=== PATIENT | female | born 1965 | race Caucasian/White ===

== ENCOUNTER → 2016-09-28 | Outpatient (CLI) | payer BC | LOC: MAMMO 06:55 | DX: Z12.31 Encounter for screening mammogram for malignant neoplasm of breast (principal); R92.0 Mammographic microcalcification found on diagnostic imaging of breast; R92.1 Mammographic calcification found on diagnostic imaging of breast | CPT/HCPCS: G0202 ==

== ENCOUNTER → 2016-10-06 | Outpatient (CLI) | payer BC | LOC: MAMMO 13:54 | DX: R92.0 Mammographic microcalcification found on diagnostic imaging of breast (principal); R92.1 Mammographic calcification found on diagnostic imaging of breast ==

== ENCOUNTER → 2017-09-04 | Outpatient (CLI) | payer BC ==
[2017-09-04 20:04] LABS: ALBUMIN 4.3 g/dL (3.5-5.0); BUN/CREATININE RATIO 11.4 (6.0-26.0); CALCIUM 10.6 mg/dL (8.4-10.2); POTASSIUM 4.4 mmol/L (3.6-5.0); TOTAL BILIRUBIN 0.5 mg/dL (0.2-1.3)
== END ==
LOC: LAB 18:50
PROVIDERS: Physician Assistant
DX: R10.13 Epigastric pain (principal)

== ENCOUNTER → 2017-11-07 | Outpatient (CLI) | payer BC | LOC: MAMMO 12:58 | DX: Z12.31 Encounter for screening mammogram for malignant neoplasm of breast (principal); Z98.890 Other specified postprocedural states ==

== ENCOUNTER → 2018-01-10 | Outpatient (CLI) | payer BC ==
[2018-01-10 19:51] LABS: EOS # 0.2 (0.04-0.40); EOS % 1.7 % (1.0-5.0); HEMATOCRIT 39.8 % (37.0-47.0); HEMOGLOBIN 13.4 g/dL (12.5-16.0); MEAN CELL VOLUME 88 fl (78-100); MEAN CORPUSCULAR HEMOGLOBIN 30 pg (27-31); MEAN CORPUSCULAR HGB CONC 34 g/dL (33-37); MEAN PLATELET VOLUME 9.7 fl (7.4-10.4); MONO # 0.7 (0.20-0.80); NEU # 6.3 (1.40-6.50); PLATELET COUNT 415 K/mm3 (130-400); RED BLOOD COUNT 4.52 M/mm3 (4.10-5.30); RED CELL DISTRIBUTION WIDTH 13.8 % (11.5-14.5); WHITE BLOOD COUNT 10.2 K/mm3 (4.8-10.8)
[2018-01-10 19:56] LABS: ALBUMIN 4.2 g/dL (3.5-5.0); CALCIUM 9.5 mg/dL (8.4-10.2); POTASSIUM 3.9 mmol/L (3.6-5.0); TOTAL BILIRUBIN 0.6 mg/dL (0.2-1.3); TOTAL PROTEIN 7.5 g/dL (6.3-8.2)
== END ==
LOC: LAB 18:32
PROVIDERS: Nurse Practitioner Family
DX: J02.9 Acute pharyngitis, unspecified (principal); R20.2 Paresthesia of skin

== ENCOUNTER → 2018-03-15 | Outpatient (CLI) | payer BC ==
[2018-03-15 18:55] LABS: EOS # 0.2 (0.04-0.40); EOS % 2.3 % (1.0-5.0); HEMATOCRIT 41.5 % (37.0-47.0); HEMOGLOBIN 13.4 g/dL (12.5-16.0); LYMPH# 3.4 (1.50-4.00); MEAN CELL VOLUME 89 fl (78-100); MEAN CORPUSCULAR HEMOGLOBIN 29 pg (27-31); MEAN CORPUSCULAR HGB CONC 32 g/dL (33-37); MEAN PLATELET VOLUME 9.3 fl (7.4-10.4); MONO # 0.9 (0.20-0.80); NEU # 5.8 (1.40-6.50); PLATELET COUNT 402 K/mm3 (130-400); RED BLOOD COUNT 4.66 M/mm3 (4.10-5.30); RED CELL DISTRIBUTION WIDTH 13.4 % (11.5-14.5); WHITE BLOOD COUNT 10.3 K/mm3 (4.8-10.8)
[2018-03-15 19:12] LABS: ALBUMIN 4.5 g/dL (3.5-5.0); CALCIUM 9.6 mg/dL (8.4-10.2); TOTAL BILIRUBIN 0.4 mg/dL (0.2-1.3); TOTAL PROTEIN 7.8 g/dL (6.3-8.2)
== END ==
LOC: LAB 18:25
PROVIDERS: Nurse Practitioner
DX: J02.9 Acute pharyngitis, unspecified (principal); R20.2 Paresthesia of skin; R10.9 Unspecified abdominal pain

== ENCOUNTER → 2018-03-29 | Outpatient (CLI) | payer BC | LOC: RAD 08:00 | DX: D25.9 Leiomyoma of uterus, unspecified (principal) ==

== ENCOUNTER → 2018-04-03 | Outpatient (CLI) | payer BC | LOC: RAD 04-02 16:25 | DX: R91.8 Other nonspecific abnormal finding of lung field (principal); R07.9 Chest pain, unspecified; R10.2 Pelvic and perineal pain; R10.9 Unspecified abdominal pain; K22.8 Other specified diseases of esophagus | CPT/HCPCS: Q9967 ==

== ENCOUNTER → 2018-07-23 | Outpatient (CLI) | payer BC | LOC: VAS 16:41 → RAD 16:45 | DX: R60.0 Localized edema (principal) ==

== ENCOUNTER → 2018-07-23 | Day surgery (SDC) | payer BC | LOC: MSO 08:21 | DX: K21.9 Gastro-esophageal reflux disease without esophagitis (principal); Z90.49 Acquired absence of other specified parts of digestive tract; Z88.1 Allergy status to other antibiotic agents; Z88.2 Allergy status to sulfonamides; Z88.6 Allergy status to analgesic agent; Z88.8 Allergy status to other drugs, medicaments and biological substances; I10 Essential (primary) hypertension; J45.909 Unspecified asthma, uncomplicated; F41.9 Anxiety disorder, unspecified; E03.9 Hypothyroidism, unspecified | CPT/HCPCS: 00731; J2704; J7120 ==

== ENCOUNTER → 2018-11-19 | Outpatient (CLI) | payer BC, OTHER ==
[2018-11-19 12:45] LABS: BASO # 0.1 (0.02-0.10); EOS # 0.3 (0.04-0.40); EOS % 2.5 % (1.0-5.0); HEMATOCRIT 43.2 % (37.0-47.0); HEMOGLOBIN 13.8 g/dL (12.5-16.0); MEAN CELL VOLUME 91 fl (78-100); MEAN CORPUSCULAR HEMOGLOBIN 29 pg (27-31); MEAN CORPUSCULAR HGB CONC 32 g/dL (33-37); MEAN PLATELET VOLUME 9.7 fl (7.4-10.4); MONO # 0.8 (0.20-0.80); NEU # 6.2 (1.40-6.50); PLATELET COUNT 435 K/mm3 (130-400); RED BLOOD COUNT 4.73 M/mm3 (4.10-5.30); RED CELL DISTRIBUTION WIDTH 13.9 % (11.5-14.5); WHITE BLOOD COUNT 10.3 K/mm3 (4.8-10.8)
[2018-11-19 12:47] LABS: ALBUMIN 3.7 g/dL (3.5-5.0); POTASSIUM 5.1 mmol/L (3.5-5.1)
[2018-11-19 12:48] LABS: CALCIUM 9.6 mg/dL (8.3-10.5)
[2018-11-19 12:49] LABS: TOTAL PROTEIN 7.5 g/dL (6.4-8.3)
[2018-11-19 12:51] LABS: TOTAL BILIRUBIN 0.4 mg/dL (0.2-1.2)
== END ==
LOC: LAB 09:45
PROVIDERS: Family Medicine
DX: Z00.00 Encounter for general adult medical examination without abnormal findings (principal); Z13.220 Encounter for screening for lipoid disorders; E03.9 Hypothyroidism, unspecified

== ENCOUNTER → 2018-11-21 | Outpatient (CLI) | payer BC | LOC: MAMMO 13:41 | DX: Z12.31 Encounter for screening mammogram for malignant neoplasm of breast (principal) ==

== ENCOUNTER → 2019-01-14 | Outpatient (CLI) | payer BC | LOC: LAB 17:21 | DX: E03.9 Hypothyroidism, unspecified (principal) ==

== ENCOUNTER → 2019-02-04 | Outpatient (CLI) | payer BC, OTHER | LOC: LAB 17:20 | DX: K14.6 Glossodynia (principal) ==

== ENCOUNTER → 2019-02-27 | Outpatient (CLI) | payer BC | LOC: RAD 15:00 | DX: M47.892 Other spondylosis, cervical region (principal); J98.4 Other disorders of lung; K11.7 Disturbances of salivary secretion; K11.8 Other diseases of salivary glands | CPT/HCPCS: Q9967 ==

== ENCOUNTER → 2019-06-18 | Outpatient (CLI) | payer BC ==
[2019-06-19 04:52] LABS: PROGESTERONE <0.5 ng/mL (())
[2019-06-19 04:53] LABS: FOLLICLE STIMULATING HORMONE 1.8 mIU/mL (()); LUTENIZING HORMONE 0.5 mIU/mL (())
[2019-06-22 08:30] LABS: ESTRONE (E1) LEVEL 28 pg/mL (())
== END ==
LOC: LAB 10:42
PROVIDERS: Family Medicine
DX: R53.83 Other fatigue (principal)

== ENCOUNTER → 2019-08-28 | Outpatient (CLI) | payer BC | LOC: LAB 17:16 | DX: E03.9 Hypothyroidism, unspecified (principal); K14.6 Glossodynia ==

== ENCOUNTER → 2019-11-18 | Outpatient (CLI) | payer BC ==
[2019-11-18 10:02] LABS: EOS # 0.3 (0.04-0.40); EOS % 3.3 % (1.0-5.0); HEMATOCRIT 43.1 % (37.0-47.0); LYMPH# 3.1 (1.50-4.00); MEAN CELL VOLUME 89 fl (78-100); MEAN CORPUSCULAR HEMOGLOBIN 29 pg (27-31); MEAN CORPUSCULAR HGB CONC 33 g/dL (33-37); MEAN PLATELET VOLUME 9.4 fl (7.4-10.4); MONO # 0.8 (0.20-0.80); NEU # 4.9 (1.40-6.50); PLATELET COUNT 431 K/mm3 (130-400); RED BLOOD COUNT 4.86 M/mm3 (4.10-5.30); RED CELL DISTRIBUTION WIDTH 13.6 % (11.5-14.5); WHITE BLOOD COUNT 9.1 K/mm3 (4.8-10.8)
[2019-11-18 10:07] LABS: ALBUMIN 3.8 g/dL (3.5-5.0); POTASSIUM 4.1 mmol/L (3.5-5.1)
[2019-11-18 10:08] LABS: CALCIUM 9.3 mg/dL (8.3-10.5)
[2019-11-18 10:11] LABS: TOTAL BILIRUBIN 0.3 mg/dL (0.2-1.2)
[2019-11-19 05:28] LABS: FOLLICLE STIMULATING HORMONE 0.5 mIU/mL (()); LUTENIZING HORMONE 0.2 mIU/mL (()); PROGESTERONE <0.5 ng/mL (())
== END ==
LOC: LAB 09:11
PROVIDERS: Family Medicine
DX: Z00.00 Encounter for general adult medical examination without abnormal findings (principal); K14.6 Glossodynia; E03.9 Hypothyroidism, unspecified; E78.5 Hyperlipidemia, unspecified

== ENCOUNTER → 2019-11-19 | Outpatient (CLI) | payer BC | LOC: MAMMO 12:50 | DX: Z12.31 Encounter for screening mammogram for malignant neoplasm of breast (principal) ==

== ENCOUNTER → 2019-12-09 | Outpatient (CLI) | payer BC | LOC: LAB 08:00 | DX: Z12.11 Encounter for screening for malignant neoplasm of colon (principal) ==

== ENCOUNTER → 2020-01-10 | Outpatient (CLI) | payer BC | LOC: LAB 17:42 | DX: L08.9 Local infection of the skin and subcutaneous tissue, unspecified (principal) ==

== ENCOUNTER → 2020-02-06 | Outpatient (CLI) | payer BC ==
[2020-02-06 12:00] LABS: BASO # 0.1 (0.02-0.10); EOS # 0.2 (0.04-0.40); EOS % 2.1 % (1.0-5.0); HEMATOCRIT 45.1 % (37.0-47.0); HEMOGLOBIN 14.3 g/dL (12.5-16.0); LYMPH# 2.5 (1.50-4.00); MEAN CELL VOLUME 88 fl (78-100); MEAN CORPUSCULAR HEMOGLOBIN 28 pg (27-31); MEAN CORPUSCULAR HGB CONC 32 g/dL (33-37); MONO # 0.8 (0.20-0.80); NEU # 4.7 (1.40-6.50); PLATELET COUNT 470 K/mm3 (130-400); RED BLOOD COUNT 5.12 M/mm3 (4.10-5.30); RED CELL DISTRIBUTION WIDTH 14.2 % (11.5-14.5); WHITE BLOOD COUNT 8.3 K/mm3 (4.8-10.8)
[2020-02-06 12:26] LABS: ALBUMIN 4.1 g/dL (3.5-5.0)
[2020-02-06 12:27] LABS: POTASSIUM 4.5 mmol/L (3.5-5.1)
[2020-02-06 12:28] LABS: CALCIUM 9.7 mg/dL (8.3-10.5)
[2020-02-06 12:31] LABS: TOTAL BILIRUBIN 0.4 mg/dL (0.2-1.2)
== END ==
LOC: LAB 11:33
PROVIDERS: Internal Medicine
DX: K14.6 Glossodynia (principal); I10 Essential (primary) hypertension; R73.02 Impaired glucose tolerance (oral)

== ENCOUNTER → 2020-02-07 | Outpatient (CLI) | payer BC | LOC: RAD 08:25 | DX: N85.8 Other specified noninflammatory disorders of uterus (principal) | CPT/HCPCS: Q9967 ==

== ENCOUNTER → 2020-08-03 | Outpatient (CLI) | payer BC ==
[2020-08-04 07:27] LABS: URINE APPEARANCE CLOUDY; URINE BILIRUBIN NEGATIVE (NEGATIVE); URINE BLOOD NEGATIVE (NEGATIVE); URINE COLOR YELLOW; URINE GLUCOSE NEGATIVE (NEGATIVE); URINE KETONE NEGATIVE (NEGATIVE); URINE LEUKOCYTE ESTERASE TRACE (NEGATIVE); URINE NITRATE NEGATIVE (NEGATIVE); URINE PROTEIN(semi-quant) TRACE mg/dL (NEGATIVE); URINE UROBILINOGEN NORMAL (NORMAL)
== END ==
LOC: LAB 17:37
PROVIDERS: Family Medicine
DX: R35.0 Frequency of micturition (principal)

== ENCOUNTER → 2020-11-18 | Outpatient (CLI) | payer OTHER | LOC: MAMMO 08:30 | DX: Z12.31 Encounter for screening mammogram for malignant neoplasm of breast (principal) ==

== ENCOUNTER → 2020-11-18 | Outpatient (CLI) | payer OTHER ==
[2020-11-18 10:52] LABS: BASO # 0.05 (0.02-0.10); EOS % 3.1 % (1.0-5.0); HEMOGLOBIN 14.3 g/dL (12.5-16.0); LYMPH# 3.55 (1.50-4.00); MEAN CELL VOLUME 91 fl (78-100); MEAN CORPUSCULAR HEMOGLOBIN 29 pg (27-31); MEAN CORPUSCULAR HGB CONC 32 g/dL (33-37); MEAN PLATELET VOLUME 8.8 fl (7.4-10.4); MONO # 0.76 (0.20-0.80); NEU # 4.86 (1.40-6.50); PLATELET COUNT 444 K/mm3 (130-400); RED BLOOD COUNT 4.94 M/mm3 (4.10-5.30); RED CELL DISTRIBUTION WIDTH 13.3 % (11.5-14.5); WHITE BLOOD COUNT 9.6 K/mm3 (4.8-10.8)
[2020-11-18 10:53] LABS: ALBUMIN 3.8 g/dL (3.5-5.0); POTASSIUM 4.5 mmol/L (3.5-5.1)
[2020-11-18 10:54] LABS: CALCIUM 9.9 mg/dL (8.3-10.5)
[2020-11-18 10:56] LABS: TOTAL PROTEIN 7.8 g/dL (6.4-8.3)
[2020-11-18 10:58] LABS: TOTAL BILIRUBIN 0.6 mg/dL (0.2-1.2)
== END ==
LOC: LAB 10:04
PROVIDERS: Family Medicine
DX: Z00.00 Encounter for general adult medical examination without abnormal findings (principal); R53.83 Other fatigue; E55.9 Vitamin D deficiency, unspecified; E78.5 Hyperlipidemia, unspecified

== ENCOUNTER → 2020-12-08 | Outpatient (CLI) | payer OTHER | LOC: RAD 15:54 | DX: M17.11 Unilateral primary osteoarthritis, right knee (principal); Z96.89 Presence of other specified functional implants ==

== ENCOUNTER → 2020-12-15 | Outpatient (CLI) | payer OTHER | LOC: RAD 09:50 | DX: M51.26 Other intervertebral disc displacement, lumbar region (principal); M48.061 Spinal stenosis, lumbar region without neurogenic claudication; M47.816 Spondylosis without myelopathy or radiculopathy, lumbar region ==

== ENCOUNTER → 2021-02-11 | Outpatient (CLI) | payer OTHER | LOC: LAB 17:20 | DX: E03.9 Hypothyroidism, unspecified (principal) ==

== ENCOUNTER → 2021-04-26 | Outpatient (CLI) | payer OTHER ==
[2021-04-26 18:04] LABS: BASO # 0.06 K/mm3 (0.02-0.10); EOS # 0.22 K/mm3 (0.04-0.40); EOS % 1.8 % (1.0-5.0); HEMATOCRIT 43.7 % (37.0-47.0); HEMOGLOBIN 14.1 g/dL (12.5-16.0); LYMPH# 3.41 K/mm3 (1.50-4.00); MEAN CELL VOLUME 88 fl (78-100); MEAN CORPUSCULAR HEMOGLOBIN 28 pg (27-31); MEAN CORPUSCULAR HGB CONC 32 g/dL (33-37); MEAN PLATELET VOLUME 8.7 fl (7.4-10.4); MONO # 0.82 K/mm3 (0.20-0.80); NEU # 7.45 K/mm3 (1.40-6.50); PLATELET COUNT 481 K/mm3 (130-400); RED BLOOD COUNT 4.97 M/mm3 (4.10-5.30); RED CELL DISTRIBUTION WIDTH 12.7 % (11.5-14.5)
[2021-04-26 18:11] LABS: ALBUMIN 4.1 g/dL (3.5-5.0)
[2021-04-26 18:13] LABS: CALCIUM 10.4 mg/dL (8.3-10.5)
[2021-04-26 18:14] LABS: TOTAL PROTEIN 7.9 g/dL (6.4-8.3)
[2021-04-26 18:16] LABS: TOTAL BILIRUBIN 0.4 mg/dL (0.2-1.2)
== END ==
LOC: LAB 17:43
PROVIDERS: Family Medicine
DX: I10 Essential (primary) hypertension (principal)

== ENCOUNTER → 2021-06-22 | Outpatient (CLI) | payer OTHER | LOC: LAB 17:49 | DX: I10 Essential (primary) hypertension (principal); E03.9 Hypothyroidism, unspecified; K21.9 Gastro-esophageal reflux disease without esophagitis; J30.9 Allergic rhinitis, unspecified; G47.00 Insomnia, unspecified; M54.16 Radiculopathy, lumbar region; E66.9 Obesity, unspecified; M19.90 Unspecified osteoarthritis, unspecified site; G64 Other disorders of peripheral nervous system; E55.9 Vitamin D deficiency, unspecified ==

== ENCOUNTER → 2021-09-22 | Outpatient (CLI) | payer OTHER | LOC: LAB 17:25 | DX: E03.9 Hypothyroidism, unspecified (principal) ==

== ENCOUNTER → 2021-10-25 | Outpatient (CLI) | payer OTHER ==
[2021-10-25 19:05] LABS: CLUE CELLS NOT OBSERVED (Not Observd)
== END ==
LOC: LAB 18:04
PROVIDERS: Nurse Practitioner Family
DX: N89.9 Noninflammatory disorder of vagina, unspecified (principal)
CPT/HCPCS: Q0111

== ENCOUNTER → 2021-11-15 | Outpatient (CLI) | payer OTHER ==
[2021-11-15 10:25] LABS: BASO # 0.06 K/mm3 (0.02-0.10); EOS # 0.27 K/mm3 (0.04-0.40); EOS % 3.3 % (1.0-5.0); HEMATOCRIT 45.1 % (37.0-47.0); HEMOGLOBIN 14.5 g/dL (12.5-16.0); LYMPH# 2.89 K/mm3 (1.50-4.00); MEAN CELL VOLUME 90 fl (78-100); MEAN CORPUSCULAR HEMOGLOBIN 29 pg (27-31); MEAN CORPUSCULAR HGB CONC 32 g/dL (33-37); MEAN PLATELET VOLUME 8.6 fl (7.4-10.4); MONO # 0.53 K/mm3 (0.20-0.80); NEU # 4.37 K/mm3 (1.40-6.50); PLATELET COUNT 405 K/mm3 (130-400); RED BLOOD COUNT 4.99 M/mm3 (4.10-5.30); RED CELL DISTRIBUTION WIDTH 13.3 % (11.5-14.5); WHITE BLOOD COUNT 8.1 K/mm3 (4.8-10.8)
[2021-11-15 10:33] LABS: ALBUMIN 4.1 g/dL (3.5-5.0)
[2021-11-15 10:35] LABS: CALCIUM 9.9 mg/dL (8.3-10.5)
[2021-11-15 10:36] LABS: TOTAL PROTEIN 7.4 g/dL (6.4-8.3)
[2021-11-15 10:38] LABS: TOTAL BILIRUBIN 0.8 mg/dL (0.2-1.2)
== END ==
LOC: LAB 10:05
PROVIDERS: Family Medicine
DX: Z00.00 Encounter for general adult medical examination without abnormal findings (principal); E78.5 Hyperlipidemia, unspecified; E55.9 Vitamin D deficiency, unspecified; E03.9 Hypothyroidism, unspecified

== ENCOUNTER → 2021-12-20 | Day surgery (SDC) | payer OTHER | LOC: MSO 08:50 | DX: Z12.11 Encounter for screening for malignant neoplasm of colon (principal) | CPT/HCPCS: 00812; J7120 ==

== ENCOUNTER → 2022-05-18 | Outpatient (CLI) | payer OTHER ==
[~2022-05-18] MED LIST: AMBIEN5 M1 PO; DICLOFENAC SOD100 GM TP; FUROSEMIDE20 MG PO; LEVOTHYROXINE125 MCG PO; NEURONTIN300 MG/CAP PO; SINGULAIR 110 MG/TAB PO; ZYRTEC ALLERGY10 MG PO
== END ==
LOC: LAB 17:26
DX: M19.90 Unspecified osteoarthritis, unspecified site (principal); E03.9 Hypothyroidism, unspecified; M25.561 Pain in right knee; M54.16 Radiculopathy, lumbar region

== ENCOUNTER → 2023-02-06 | Day surgery (SDC) | payer OTHER | END | disposition home or self-care (01) | LOC: MSO 10:31 | DX: K21.9 Gastro-esophageal reflux disease without esophagitis (principal) | CPT/HCPCS: 00731; J2704; J7120 ==

== ENCOUNTER → 2023-03-03 | Outpatient (CLI) | payer OTHER ==
[2023-03-03 09:41] LABS: BASO # 0.01 K/mm3 (0.02-0.10); HEMATOCRIT 43.1 % (37.0-47.0); LYMPH# 1.49 K/mm3 (1.50-4.00); MEAN CELL VOLUME 90 fl (78-100); MEAN CORPUSCULAR HEMOGLOBIN 29 pg (27-31); MEAN CORPUSCULAR HGB CONC 33 g/dL (33-37); MEAN PLATELET VOLUME 8.5 fl (7.4-10.4); MONO # 0.83 K/mm3 (0.20-0.80); NEU # 12.59 K/mm3 (1.40-6.50); PLATELET COUNT 494 K/mm3 (130-400); RED BLOOD COUNT 4.77 M/mm3 (4.10-5.30); RED CELL DISTRIBUTION WIDTH 13.4 % (11.5-14.5)
== END ==
LOC: LAB 09:16
PROVIDERS: Nurse Practitioner
DX: J32.9 Chronic sinusitis, unspecified (principal); D72.829 Elevated white blood cell count, unspecified

== ENCOUNTER → 2023-04-11 | Outpatient (CLI) | payer OTHER | LOC: RAD 08:53 | DX: J32.9 Chronic sinusitis, unspecified (principal) ==

== ENCOUNTER → 2023-08-22 | Day surgery (SDC) | payer OTHER ==
[~2023-08-22] MED LIST changes: +Iohexol 300 - 10 ML VIAL IV ONE; +methylPREDNISolone acetate 80 MG/ML VIAL IJ ONE
== END | disposition home or self-care (01) ==
LOC: MSO 12:38
DX: M46.1 Sacroiliitis, not elsewhere classified (principal); M47.896 Other spondylosis, lumbar region; M48.061 Spinal stenosis, lumbar region without neurogenic claudication; E66.9 Obesity, unspecified; Z68.33 Body mass index [BMI] 33.0-33.9, adult
CPT/HCPCS: J0665; J1010; Q9967

== ENCOUNTER → 2023-10-17 | Outpatient (CLI) | payer OTHER ==
[~2023-10-17] MED LIST changes: -Iohexol 300 - 10 ML VIAL IV ONE; -methylPREDNISolone acetate 80 MG/ML VIAL IJ ONE
[2023-10-17 19:36] LABS: ALBUMIN 4.4 g/dL (3.5-5.0)
[2023-10-17 19:37] LABS: BASO # 0.06 K/mm3 (0.02-0.10); CALCIUM 9.7 mg/dL (8.3-10.5); EOS # 0.36 K/mm3 (0.04-0.40); EOS % 3.2 % (1.0-5.0); HEMATOCRIT 41.9 % (37.0-47.0); HEMOGLOBIN 13.4 g/dL (12.5-16.0); LYMPH# 4.15 K/mm3 (1.50-4.00); MEAN CELL VOLUME 90 fl (78-100); MEAN CORPUSCULAR HEMOGLOBIN 29 pg (27-31); MEAN CORPUSCULAR HGB CONC 32 g/dL (33-37); MEAN PLATELET VOLUME 9.1 fl (7.4-10.4); MONO # 0.86 K/mm3 (0.20-0.80); NEU # 5.68 K/mm3 (1.40-6.50); PLATELET COUNT 412 K/mm3 (130-400); RED BLOOD COUNT 4.68 M/mm3 (4.10-5.30); RED CELL DISTRIBUTION WIDTH 13.7 % (11.5-14.5); WHITE BLOOD COUNT 11.1 K/mm3 (4.8-10.8)
[2023-10-17 19:38] LABS: CLUE CELLS PRESENT (Not Observd)
[2023-10-17 19:39] LABS: TOTAL PROTEIN 8.3 g/dL (6.4-8.3)
[2023-10-17 19:40] LABS: TOTAL BILIRUBIN 0.3 mg/dL (0.2-1.2)
== END ==
LOC: LAB 19:00
PROVIDERS: Nurse Practitioner Family
DX: L29.3 Anogenital pruritus, unspecified (principal)
CPT/HCPCS: Q0111

== ENCOUNTER → 2023-11-13 | Outpatient (CLI) | payer OTHER ==
[2023-11-13 10:57] LABS: BASO # 0.07 K/mm3 (0.02-0.10); EOS # 0.44 K/mm3 (0.04-0.40); EOS % 5.2 % (1.0-5.0); HEMATOCRIT 44.1 % (37.0-47.0); HEMOGLOBIN 14.1 g/dL (12.5-16.0); LYMPH# 2.94 K/mm3 (1.50-4.00); MEAN CELL VOLUME 89 fl (78-100); MEAN CORPUSCULAR HEMOGLOBIN 29 pg (27-31); MEAN CORPUSCULAR HGB CONC 32 g/dL (33-37); MEAN PLATELET VOLUME 8.6 fl (7.4-10.4); NEU # 4.25 K/mm3 (1.40-6.50); PLATELET COUNT 453 K/mm3 (130-400); RED BLOOD COUNT 4.94 M/mm3 (4.10-5.30); RED CELL DISTRIBUTION WIDTH 13.7 % (11.5-14.5); WHITE BLOOD COUNT 8.4 K/mm3 (4.8-10.8)
[2023-11-13 11:09] LABS: ALBUMIN 4.4 g/dL (3.5-5.0)
[2023-11-13 11:10] LABS: CALCIUM 10.4 mg/dL (8.3-10.5)
[2023-11-13 11:13] LABS: TOTAL BILIRUBIN 0.6 mg/dL (0.2-1.2)
== END ==
LOC: LAB 10:26
PROVIDERS: Family Medicine
DX: E03.9 Hypothyroidism, unspecified (principal); E55.9 Vitamin D deficiency, unspecified; I10 Essential (primary) hypertension; E66.9 Obesity, unspecified

== ENCOUNTER → 2024-01-09 | Day surgery (SDC) | payer OTHER ==
[~2024-01-09] MED LIST changes: +Iohexol 300 - 10 ML VIAL IV ONE; +Lidocaine PF 2% (20 MG/ML) 2 ML VIAL IJ ONE
== END ==
LOC: MSO 12-19 11:35
DX: M54.16 Radiculopathy, lumbar region (principal)
CPT/HCPCS: J1100; Q9967

== ENCOUNTER → 2024-01-15 | Outpatient (CLI) | payer OTHER ==
[~2024-01-15] MED LIST changes: -Iohexol 300 - 10 ML VIAL IV ONE; -Lidocaine PF 2% (20 MG/ML) 2 ML VIAL IJ ONE
== END ==
LOC: LAB 17:41
DX: E03.9 Hypothyroidism, unspecified (principal)

== ENCOUNTER → 2024-02-20 | Day surgery (SDC) | payer OTHER ==
[~2024-02-20] MED LIST changes: +Iohexol 300 - 10 ML VIAL IV ONE; +methylPREDNISolone acetate 80 MG/ML VIAL IJ ONE
== END | disposition home or self-care (01) ==
LOC: MSO 13:23
DX: M46.1 Sacroiliitis, not elsewhere classified (principal); M54.50 Low back pain, unspecified; M53.3 Sacrococcygeal disorders, not elsewhere classified
CPT/HCPCS: J0665; J1010; Q9967

== ENCOUNTER → 2024-04-09 | Day surgery (SDC) | payer OTHER ==
[~2024-04-09] MED LIST changes: -Iohexol 300 - 10 ML VIAL IV ONE; -methylPREDNISolone acetate 80 MG/ML VIAL IJ ONE
== END ==
LOC: WKSPAIN 03:50
DX: M47.817 Spondylosis without myelopathy or radiculopathy, lumbosacral region (principal); G89.29 Other chronic pain; M51.26 Other intervertebral disc displacement, lumbar region; M48.061 Spinal stenosis, lumbar region without neurogenic claudication; M51.86 Other intervertebral disc disorders, lumbar region; E66.9 Obesity, unspecified; Z68.36 Body mass index [BMI] 36.0-36.9, adult

== ENCOUNTER → 2024-05-09 | Outpatient (CLI) | payer OTHER | LOC: RAD 18:56 | DX: M51.360 Other intervertebral disc degeneration, lumbar region with discogenic back pain only (principal); M43.8X6 Other specified deforming dorsopathies, lumbar region; Z91.81 History of falling ==

== ENCOUNTER → 2024-05-14 | Day surgery (SDC) | payer OTHER | LOC: WKSPAIN 05-07 16:12 | DX: M48.061 Spinal stenosis, lumbar region without neurogenic claudication (principal); M47.817 Spondylosis without myelopathy or radiculopathy, lumbosacral region; G89.29 Other chronic pain; E66.9 Obesity, unspecified; Z68.36 Body mass index [BMI] 36.0-36.9, adult ==

== ENCOUNTER → 2024-05-17 | Outpatient (CLI) | payer OTHER | LOC: RAD 13:13 | DX: S22.009A Unspecified fracture of unspecified thoracic vertebra, initial encounter for closed fracture (principal); X58.XXXA Exposure to other specified factors, initial encounter ==

== ENCOUNTER → 2024-06-11 | Day surgery (SDC) | payer OTHER ==
[~2024-06-11] VITALS: Ht 167.6 cm; Wt 111.1 kg
[~2024-06-11] MED LIST changes: +Iohexol 300 - 10 ML VIAL IV ONE; +Lidocaine PF 2% (20 MG/ML) 2 ML VIAL IJ SCH; +Topical Skin Adhesive 1 EACH (0.5 ML) TOP ONE
== END ==
LOC: WKSPAIN 11:55
DX: M80.88XA Other osteoporosis with current pathological fracture, vertebra(e), initial encounter for fracture (principal); M47.816 Spondylosis without myelopathy or radiculopathy, lumbar region; E66.9 Obesity, unspecified; M51.26 Other intervertebral disc displacement, lumbar region; M48.061 Spinal stenosis, lumbar region without neurogenic claudication; M48.8X6 Other specified spondylopathies, lumbar region; Z68.39 Body mass index [BMI] 39.0-39.9, adult
CPT/HCPCS: 19001; 19002; 19003; C1713

== ENCOUNTER → 2024-07-12 | Outpatient (CLI) | payer OTHER ==
[~2024-07-12] MED LIST changes: -Iohexol 300 - 10 ML VIAL IV ONE; -Lidocaine PF 2% (20 MG/ML) 2 ML VIAL IJ SCH; -Topical Skin Adhesive 1 EACH (0.5 ML) TOP ONE
== END ==
LOC: MAMMO 08:30 → RAD 08:31
DX: M85.80 Other specified disorders of bone density and structure, unspecified site (principal); S22.009D Unspecified fracture of unspecified thoracic vertebra, subsequent encounter for fracture with routine healing

== ENCOUNTER → 2024-07-12 | Outpatient (CLI) | payer OTHER | LOC: LAB 09:06 | DX: E03.9 Hypothyroidism, unspecified (principal) ==

== ENCOUNTER → 2024-08-05 | Outpatient (CLI) | payer OTHER | LOC: LAB 17:32 | DX: E03.9 Hypothyroidism, unspecified (principal) ==